=== PATIENT | male | born 1955 | race Caucasian/White ===

== ENCOUNTER → 2021-11-22 | Outpatient (CLI) | payer MEDICARE, MEDICAID ==
--- NOTE | 2021-11-22 14:48 | Diagnostic Imaging Report ---
EXAMINATION: CT Lung Screening. INDICATION: Screening for lung cancer, [id number] history of smoking, current smoker. TECHNIQUE: Noncontrast, low-dose CT imaging performed according to the lung cancer screening protocol. Auto Exposure Controls were utilize during the CT exam to meet ALARA standards for radiation dose reduction. COMPARISON: None available. FINDINGS: No significant adenopathy within the chest. No aneurysmal dilatation of the thoracic aorta. Scattered vascular calcifications, including extensive calcifications versus stents within the coronary arteries. The heart is within normal limits in size. No significant pericardial effusion. No significant pleural effusion. The trachea is patent. No pneumothorax. Small pleural-based 0.4 cm solid left lower lobe pulmonary nodule, series 2, image 64. 0.6 x 0.4 cm pleural-based right lower lobe pulmonary nodule adjacent to the fissure, series 2, image 110. No additional suspicious pulmonary nodule or mass. Tiny fat-containing diaphragmatic hernia noted posteriorly on the right. 2.6 cm hypodensity within the superior pole of the left kidney is partially visualized. Scattered osseous degenerative changes. No acute osseous abnormality. IMPRESSION: Sub-0.6 cm bilateral pulmonary nodules as described above. Given size and appearance, these are felt to be benign in appearance or behavior. Significant vascular calcifications versus stents within the coronary arteries. Left renal hypodensity, only partially visualized. Statistically this likely relates to a cyst, though this could be confirmed with a renal ultrasound as it is technically indeterminate based upon this examination. LUNG-RADS CATEGORY: 2S: Benign appearance or behavior. MODIFIER: S: Significant vascular calcifications versus advanced coronary artery calcifications. Indeterminate left renal hypodensity which could be further evaluated with a renal ultrasound. FOLLOW-UP: Continued annual low-dose CT of the chest in 12 months. Renal ultrasound could be performed to further evaluate the partially visualized hypodensity within the left kidney if this has not previously been evaluated. Dictated by: Dictated on workstation # [id number]
== END ==
LOC: RAD 12:15
PROVIDERS: ATTEND Internal Medicine
DX: Z12.2 Encounter for screening for malignant neoplasm of respiratory organs (principal); R91.8 Other nonspecific abnormal finding of lung field; F17.210 Nicotine dependence, cigarettes, uncomplicated; Z95.5 Presence of coronary angioplasty implant and graft
CPT/HCPCS: 71271

== ENCOUNTER 2021-12-01 11:59 | Emergency (ER) | payer MEDICARE, MEDICAID ==
[~2021-12-01] VITALS: Ht 167 cm; Wt 75.0 kg
[2021-12-01] MEDS ORDERED: DEXTROSE 50% 50 ML (IMS) SYR ONE (12:13)
--- NOTE | 2021-12-01 12:19 | ED General ---
General Stated Complaint: LOW BLOOD SUGAR Source of Information: Patient, EMS Exam Limitations: No Limitations History of Present Illness Date Seen by Provider: Dec 01, 2021 Time Seen by Provider: 12:00 Initial Comments Bill is a 66-year-old male who presents to the emergency room by ambulance chief complaint low blood sugar. Known dialysis patient. EMS reports they found him poorly responsive blood sugar down in the 30s. Patient states that he got up about 530 or 6:00 this morning, had breakfast but shortly afterwards became very confused, could not really see clearly could not think clearly "I thought I was ". He is not clear on how the ambulance got to him. EMS reports he was profusely diaphoretic. He denies any recent illnesses such as fevers, chills, productive cough. He is COVID vaccinated x3. He denies any diarrhea. He still occasionally makes urine no difficulties with that. No rashes, joint pain or swelling. He does not recall his daily medications but states that he takes "a lot". He does not have a local doctor. He was recently released from [facility] in [facility] and has been residing in [place] for about a month and assisted living here. He does not know who his nephrol ogist is. He dialyzes Sunday and Sunday. On arrival blood sugar remains 33 by Accu-Chek. He is awake alert, oriented, talking no complaints. Drinking orange juice. Tetanus UTD All other review of systems reviewed and negative except as stated. Timing/Duration: 1-3 Hours Associated Systoms: Weakness Allergies and Home Medications Allergies Coded Allergies: No Known Drug Allergies (Unverified , 12/01/21) Patient Home Medication List Home Medication List Reviewed: Yes Hydrocodone/Acetaminophen (Hydrocodone-Acetamin 5-325 mg) 1 Each Tablet, 1 TAB PO Q6H PRN for PAIN-MODERATE (5-7) Prescribed by: OLAF BOTELLO on 12/01/21 3364 Review of Systems Review of Systems Constitutional: see HPI EENTM: no symptoms reported Respiratory: no symptoms reported Cardiovascular: no symptoms reported Gastrointestinal: no symptoms reported Genitourinary: no symptoms reported Musculoskeletal: no symptoms reported Skin: other (abrasions) Psychiatric/Neurological: No Symptoms Reported All Other Systems Reviewed Negative Unless Noted: Yes Physical Exam Vital Signs Vital Signs - First Documented 12/01/21 11:59 Temp 36.3 Pulse 77 Resp 16 B/P (MAP) 131/71 (91) Pulse Ox 100 O2 Delivery Room Air Capillary Refill : Height, Weight, BMI Height: '" Weight: lbs. oz. kg; BMI Method: General Appearance: No Apparent Distress, WD/WN Eyes: Bilateral Eye Normal Inspection, Bilateral Eye PERRL, Bilateral Eye EOMI HEENT: PERRL/EOMI Neck: Normal Inspection Respiratory: Lungs Clear, Normal Breath Sounds, No Accessory Muscle Use, No Respiratory Distress, Other (tenderness to chest wall bilaterally; no crepitance;) Cardiovascular: Regular Rate, Rhythm (distant hear sounds (rate 70's)) Gastrointestinal: Non Tender, Soft Back: No Vertebral Tenderness Extremity: Normal Inspection, Normal Range of Motion, Non Tender, No Pedal Edema Neurologic/Psychiatric: Alert, Oriented x3, No Motor/Sensory Deficits, Normal Mood/Affect Skin: Normal Color, Warm/Dry, Other (abrasions right elbow and right forearm; also left forearm) Progress/Results/Core Measures Suspected Sepsis SIRS Temperature: Pulse: Respiratory Rate: Laboratory Tests 12/01/21 13:10: White Blood Count 18.2H Blood Pressure / Mean: Laboratory Tests 12/01/21 12:11: Creatinine 9.29H, Total Bilirubin 0.5 12/01/21 13:10: Platelet Count 237 Results/Orders Lab Results Laboratory Tests Test 12/01/21 12:04 12/01/21 12:11 12/01/21 12:28 12/01/21 13:10 Range/Units Glucometer 34 *L 92 70-110 MG/DL Sodium Level 142 135-145 MMOL/L Potassium Level 4.2 3.6-5.0 MMOL/L Chloride Level 98 98-107 MMOL/L Carbon Dioxide Level 22 21-32 MMOL/L Anion Gap 22 H 5-14 MMOL/L Blood Urea Nitrogen 50 H 7-18 MG/DL Creatinine 9.29 H 0.60-1.30 MG/DL Estimat Glomerular Filtration Rate 6 BUN/Creatinine Ratio 5 Glucose Level 66 L 70-105 MG/DL Calcium Level 10.1 8.5-10.1 MG/DL Corrected Calcium 10.1 8.5-10.1 MG/DL Total Bilirubin 0.5 0.1-1.0 MG/DL Aspartate Amino Transf (AST/SGOT) 24 5-34 U/L Alanine Aminotransferase (ALT/SGPT) 11 0-55 U/L Alkaline Phosphatase 214 H 40-136 U/L Total Protein 6.8 6.4-8.2 GM/DL Albumin 4.0 3.2-4.5 GM/DL White Blood Count 18.2 H 4.3-11.0 10^3/uL Red Blood Count 5.04 4.30-5.52 10^6/uL Hemoglobin 17.0 13.3-17.7 g/dL Hematocrit 53 40-54 % Mean Corpuscular Volume 105 H 80-99 fL Mean Corpuscular Hemoglobin 34 25-34 pg Mean Corpuscular Hemoglobin Concent 32 32-36 g/dL Red Cell Distribution Width 14.2 10.0-14.5 % Platelet Count 237 130-400 10^3/uL Mean Platelet Volume 9.9 9.0-12.2 fL Immature Granulocyte % (Auto) 1 % Neutrophils (%) (Auto) 88 H 42-75 % Lymphocytes (%) (Auto) 4 L 12-44 % Monocytes (%) (Auto) 8 0-12 % Eosinophils (%) (Auto) 0 0-10 % Basophils (%) (Auto) 0 0-10 % Neutrophils # (Auto) 16.0 H 1.8-7.8 10^3/uL Lymphocytes # (Auto) 0.6 L 1.0-4.0 10^3/uL Monocytes # (Auto) 1.4 H 0.0-1.0 10^3/uL Eosinophils # (Auto) 0.0 0.0-0.3 10^3/uL Basophils # (Auto) 0.1 0.0-0.1 10^3/uL Immature Granulocyte # (Auto) 0.1 0.0-0.1 10^3/uL Neutrophils % (Manual) 83 % Lymphocytes % (Manual) 5 % Monocytes % (Manual) 8 % Band Neutrophils 1 % Atypical Lymphocytes 2 % Reactive Lymphocytes 1 % Toxic Granulation 1+ Polychromasia SLIGHT Anisocytosis SLIGHT Microcytosis SLIGHT Macrocytosis SLIGHT Test 12/01/21 13:23 Range/Units Glucometer 243 H 70-110 MG/DL My Orders Orders - OLAF BOTELLO MD Ed Iv/Invasive Line Start (12/01/21 12:12) Cbc With Automated Diff (12/01/21 12:12) Comprehensive Metabolic Panel (12/01/21 12:12) Accucheck Stat ONCE (12/01/21 12:13) D50w (Emergency) Syringe (Dextrose 50% 5 (12/01/21 12:13) General/Regular (12/01/21 Lunch) D50w (Emergency) Syringe (Dextrose 50% 5 (12/01/21 13:00) Manual Differential (12/01/21 13:10) Accucheck Stat ONCE (12/01/21 13:35) Chest 1 View, Ap/Pa Only (12/01/21 14:05) Hydrocodone/Apap 5/325 Tablet (Lortab 5 (12/01/21 14:15) Accucheck Stat ONCE (12/01/21 14:34) Medications Given in ED Current Medications Medications Dose Ordered Sig/Elsy Route Start Time Stop Time Status Last Admin Dose Admin Acetaminophen/ Hydrocodone Bitart 1 ea ONCE ONCE PO 12/01/21 14:15 12/01/21 14:16 DC 12/01/21 14:31 1 EA Dextrose 50 ml STK-MED ONCE .ROUTE 12/01/21 12:13 12/01/21 12:16 DC 12/01/21 12:20 50 ML Vital Signs/I&O 12/01/21 11:59 Temp 36.3 Pulse 77 Resp 16 B/P (MAP) 131/71 (91) Pulse Ox 100 O2 Delivery Room Air Capillary Refill : Progress Note : Time: 14:37 Progress Note remains awake and alert and oriented. Blood sugar steadily improving. Complains of chest wall pain with movement and deep breath (likely from fall with low blood sugar). VSS. Has a leukocytosis - likely also related to the low blood sugar and fall. No complaints of illness. Has eaten. Will discharge to home with return precautions. Follow up with PCP. Diagnostic Imaging Diagonstic Imaging: Xray Plain Films/CT/US/NM/MRI: chest Comments [facility]. [place], [place] NAME: BILL SEE MED REC#: [id number] PT STATUS: REG ER : 1955 PHYSICIAN: OLAF BOTELLO MD ADMIT DATE: 12/01/21/ER Draft Date of Exam:12/01/21 CHEST 1 VIEW, AP/PA ONLY INDICATION: Anterior chest wall pain. TIME OF EXAM: 2:05 PM No prior studies are available for comparison. FINDINGS: The heart size is normal. The pulmonary vascularity is unremarkable. The lungs are clear. No infiltrate, effusion or pneumothorax is detected. IMPRESSION: No acute cardiopulmonary process is detected. Dictated on workstation # [id number] Dict: 12/01/21 1424 Trans: 12/01/21 1426 CVB [id number] Interpreted by: DANIEL DOMINGUEZ MD Electronically signed by: Critical Care Note Critical Care Start Time: 12:00 Stop Time: 14:30 Total Time (minutes) 1 hour critical care time in the evaluation and management of this patient with hypoglycemia. Linda includes initial eval and supplementation of glucose. continuous monitoring with multiple blood sugar checks. eval of labs and i maging. Discussion with patient. review of medical history. 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 Decision time for Depature: 14:39 Referrals: [facility]/HELADIO JOSE MD Patient Instructions: Low Blood Sugar in People With Diabetes Add. Discharge Instructions: Continue to follow your diabetes diet. Check your blood sugar 4 times a day. Follow up closely with your primary healthcare provider. Return to the ER for any new, emergent or concerning symptoms. I have given you 2 days of pain medications for your chest wall pain. Take this only as needed every 6 hours - this medication can make you sleepy and lead to constipation. Scripts Hydrocodone/Acetaminophen (Hydrocodone-Acetamin 5-325 mg) 1 Each Tablet 1 TAB PO Q6H PRN for PAIN-MODERATE (5-7), #8 TAB Prov: OLAF BOTELLO MD 12/01/21 OLAF BOTELLO MD Dec 01, 2021 12:19
[2021-12-01 12:27] LABS: POTASSIUM 4.2 MMOL/L (3.6-5.0)
[2021-12-01 12:28] LABS: CALCIUM 10.1 MG/DL (8.5-10.1)
[2021-12-01 12:30] LABS: TOTAL PROTEIN 6.8 GM/DL (6.4-8.2)
[2021-12-01 12:31] LABS: BILIRUBIN,TOTAL 0.5 MG/DL (0.1-1.0)
[2021-12-01 12:33] LABS: CREATININE SERUM 9.29 MG/DL (0.60-1.30)
[2021-12-01] MEDS ORDERED: DEXTROSE 50% 50 ML (IMS) SYR IV ONE (13:00)
[2021-12-01 13:17] LABS: BASOPHILS # (AUTO) 0.1 10^3/uL (0.0-0.1); BASOPHILS % (AUTO) 0 % (0-10); EOSINOPHILS % (AUTO) 0 % (0-10); HEMATOCRIT 53 % (40-54); LYMPHOCYTES # (AUTO) 0.6 10^3/uL (1.0-4.0); LYMPHOCYTES % (AUTO) 4 % (12-44); MEAN CORPUSCULAR HEMOGLOBIN 34 pg (25-34); MEAN CORPUSCULAR HGB CONC 32 g/dL (32-36); MEAN CORPUSCULAR VOLUME 105 fL (80-99); MEAN PLATELET VOLUME 9.9 fL (9.0-12.2); MONOCYTES # (AUTO) 1.4 10^3/uL (0.0-1.0); MONOCYTES % (AUTO) 8 % (0-12); NEUTROPHILS % (AUTO) 88 % (42-75); PLATELET COUNT 237 10^3/uL (130-400); WHITE BLOOD COUNT 18.2 10^3/uL (4.3-11.0)
[2021-12-01 13:58] LABS: ANISOCYTOSIS SLIGHT; ATYPICAL LYMPHOCYTES 2 %; BAND NEUTROPHILS 1 %; LYMPHOCYTES % (MANUAL) 5 %; MICROCYTOSIS SLIGHT; MONOCYTES % (MANUAL) 8 %; NEUTROPHILS % (MANUAL) 83 %; POLYCHROMASIA SLIGHT; REACTIVE LYMPHOCYTES 1 %; TOXIC GRANULATION/VACUOLAZATIO 1+
[2021-12-01] MEDS ORDERED: HYDROcodone/APAP 5 MG/325 MG (LORTAB) TAB PO ONE (14:15)
--- NOTE | 2021-12-01 14:26 | Diagnostic Imaging Report ---
INDICATION: Anterior chest wall pain. TIME OF EXAM: 2:05 PM No prior studies are available for comparison. FINDINGS: The heart size is normal. The pulmonary vascularity is unremarkable. The lungs are clear. No infiltrate, effusion or pneumothorax is detected. IMPRESSION: No acute cardiopulmonary process is detected. Dictated by: Dictated on workstation # [id number]
[2021-12-01] MEDS ORDERED: ACHD5005 PO (14:43)
[2021-12-01 14:56] VITALS: BP 121/63
== END 2021-12-01 14:56 | disposition home or self-care (01) ==
LOC: EDUNIT# 11:59 → ER 12:00
DX: S50.311A Abrasion of right elbow, initial encounter (principal); S50.811A Abrasion of right forearm, initial encounter; S50.812A Abrasion of left forearm, initial encounter; E11.649 Type 2 diabetes mellitus with hypoglycemia without coma; E11.22 Type 2 diabetes mellitus with diabetic chronic kidney disease; N18.6 End stage renal disease; R07.89 Other chest pain; D72.829 Elevated white blood cell count, unspecified; Z79.4 Long term (current) use of insulin; Z99.2 Dependence on renal dialysis; X58.XXXA Exposure to other specified factors, initial encounter
CPT/HCPCS: 36415; 71045; 80053; 82947; 85007; 85027

== ENCOUNTER → 2021-12-06 | Outpatient (CLI) | payer MEDICARE, MEDICAID ==
[~2021-12-06] MED LIST: ACHD5005 PO
--- NOTE | 2021-12-06 13:55 | Diagnostic Imaging Report ---
CLINICAL INDICATION: Patient thinks he possibly fell on table at home. Patient has pain across lower ribs on both sides. Exams: 1: Chest x-ray PA and lateral views. 2: X-ray of the right ribs, 3 views. COMPARISON: Chest x-ray dated 12/01/2021. CT scan of the chest without contrast dated 11/22/2021. FINDINGS: There are no right rib fractures seen. There is no pneumothorax. There is interval development of amorphous airspace opacities in left lung base which may represent atelectasis versus infiltrate. Lateral view shows blunting of the costophrenic angle regions posteriorly which may be related to minimal pleural effusions versus lung atelectasis or infiltrate. Pulmonary vasculature is within normal limits. There is upper limits of normal heart size. Stable chronic anterior wedge deformity of the T11 vertebra seen on comparison chest CT scan. Impression: 1: There are no rib fractures and no definite acute bone fracture seen on this exam. There is a chronic anterior wedge deformity of the T11 vertebra. 2: Interval development of a small area of atelectasis versus infiltrate left lung base. 3: There is blunting of the costophrenic angle regions posteriorly which may be related to minimal pleural effusions or minimal atelectasis or infiltrate. Dictated by: Dictated on workstation # [id number]
== END ==
LOC: RAD 12:58
PROVIDERS: ATTEND Nurse Practitioner Family
DX: M43.8X4 Other specified deforming dorsopathies, thoracic region (principal)
CPT/HCPCS: 71046; 71100

== ENCOUNTER 2021-12-29 07:10 | Day surgery (SDC) | payer MEDICARE, MEDICAID ==
[~2021-12-29] VITALS: Ht 160 cm; Wt 76.4 kg
[~2021-12-29 07:10] MED LIST changes: +ASPI-999 PO; +BUPR100T15 PO; +BUPR200T34 PO; +CARV3.122 PO; +CLOP75TA28 PO; +DOCU100C37 PO; +FOLI0.8T2 PO; +INSU100V16 SQ; +LEVO25TA5 PO; +MULT-1056 PO; +PANT40TA52 PO; +SERT-413 PO; +SEVE800T13 PO; +SODI10PO PO
[2021-12-29] MEDS ORDERED: HURRICAINE EXT TUBE (BENZOCAINE) XX PRN (07:15)
[2021-12-29] MEDS ORDERED: NS IV 500 ML 500 ML IV PRN (07:15)
[2021-12-29] MEDS ORDERED: PROPOFOL INJECTION 50 ML IV ONE (07:31)
[2021-12-29 07:36] VITALS: BP 104/55
--- NOTE | 2021-12-29 07:49 | Pre-Op Note & Conscious Sedat ---
Pre-Operative Progress Note H&P Reviewed The H&P was reviewed, patient examined and no changes noted. Date H&P Reviewed: Dec 29, 2021 Time H&P Reviewed: 07:49 Conscious Sedation Pre-Proced ASA Score 3 For ASA 3 and 4: Consider anesthesia and medical clearance. Also, for patients with a history of failed moderate sedation consider anesthesia. Airway Lungs Heart ASA score ASA 1: a normal healthy patient ASA 2: a patient with a mild systemic disease (mid diabetes, controlled hypertension, obesity ASA 3: a patient with a severe systemic disease that limits activity (angina, COPD, prior Myocardial infarction) ASA 4: a patient with an incapacitating disease that is a constant threat to life (CHF, renal failure) ASA 5: a moribund patient not expected to survive 24 hrs. (ruptured aneurysm) ASA 6: a declared brain- patient whose organs are being harvested. For emergent operations, add the letter E after the classification Mallampati Classification Grade 2 Sedation Plan Analgesia, Amnesia, Plan communicated to team members, Discussed options with patient/fam, Discussed risks with patient/fam The patient is an appropriate candidate to undergo the planned procedure, sedation, and anesthesia. The patient immediately re-assessed prior to indication. JS GARCIA MD Dec 29, 2021 07:49
[2021-12-29 08:20] VITALS: BP 93/56
[2021-12-29 08:25] VITALS: BP 109/63
[2021-12-29 08:30] VITALS: BP 122/71
[2021-12-29 08:35] VITALS: BP 115/57
[2021-12-29 09:05] VITALS: BP 112/56
--- NOTE | 2021-12-29 09:48 | Anesthesia-General Post-Op ---
MAC Patient Condition Mental Status/LOC: Same as Preop Cardiovascular: Satisfactory Nausea/Vomiting: Absent Respiratory: Satisfactory Pain: Controlled Complications: Absent Post Op Complications Complications None Follow Up Care/Instructions Patient Instructions None needed. Anesthesiology Discharge Order Discharge Order Patient is doing well, no complaints, stable vital signs, no apparent adverse anesthesia problems. No complications reported per nursing. PRISCILLA BARNES CRNA Dec 29, 2021 09:48
--- NOTE | 2021-12-29 11:42 | OPERATIVE REPORT ---
DATE OF SERVICE: COLONOSCOPY SUMMARY The patient is a 66-year-old white male referred for screening colonoscopy by Dr. Luis Daniel Molina. DESCRIPTION OF PROCEDURE: The patient was placed in the left lateral decubitus position. Prior to undergoing colonoscopy, digital rectal evaluation was performed. Anal sphincter tone was normal and the perianal reflexes intact. Prostate is mildly enlarged and anodular on digital inspection. No other abnormalities were noted on digital inspection of anal canal or distal rectal vault. The colonoscope was then inserted into the rectum and under direct visualization advanced to the cecum. The cecum was identified by identification of the ileocecal valve with cecal strap and appendiceal orifice. Photographic documentation was obtained. Quality of prep was good. FINDINGS: There was no evidence for external hemorrhoids. There were several grade I internal hemorrhoid complexes noted. One 3 mm hyperplastic-appearing polyp was noted in the distal rectum, which considering the patient's age, medical comorbidities, and Plavix was left as risk of removal were outweighed by benefit. The remainder of the rectum was unremarkable. The sigmoid colon, descending colon, and splenic flexure were unremarkable. Present in the proximal transverse colon was an 8 mm sessile adenomatous appearing polyp. It was photographed and biopsied and ablated with hot forceps with no blood loss. The hepatic flexure, ascending colon, and cecum were unremarkable. There was no evidence for diverticular disease. ASSESSMENT: Sessile adenomatous appearing polyp was removed from the proximal transverse colon via hot forceps with no subsequent blood loss. The patient was advised to resume Plavix this coming Sunday. As long as there is no evidence for dysplasia or microscopic malignancy considering patient's age coupled with significant medical comorbidities including diabetes and dialysis for end-stage renal disease. I would not recommend future screening colonoscopy. I thank you for the referral of this pleasant gentleman. CC: Dr. Luis Daniel Molina -- requested, unable to deliver. Job ID: [id number] DocumentID: [id number] Dictated Date: 12/29/2021 08:39:44 Family Day Care Worker Date: 12/29/2021 11:41:10 Dictated By: JS GARCIA MD [facility]
--- NOTE | 2021-12-30 10:38 | HISTORY AND PHYSICAL ---
DATE OF SERVICE: COLONOSCOPY HISTORY AND PHYSICAL HISTORY OF PRESENT ILLNESS: The patient is a 66-year-old white male referred by Dr. Molina for his first screening colonoscopy. He recently moved to [place] and is currently a resident of [facility]. He is not aware of any family history for colon cancer. Denies abdominal pain, bright red blood per rectum, melena or change in bowel habit. He is deemed to be of average risk, although he is a poor historian. PAST MEDICAL HISTORY: Significant for longstanding hypertension and diabetes with secondary stage V renal disease for which he is on hemodialysis on Sunday, Sunday and Fridays. He has history of coronary artery disease. Reports had at least one coronary stent placed in 2009 and none since that time. He has been on aspirin and Plavix since. He knows little about his health history. I am assuming that he is on erythropoietin stimulating medication for anemia. He stated that he did not know and could not tell me anything about blood counts or the degree of his anemia nor did he know what his HbA1cs were or give me much information about blood sugar levels. PAST SURGICAL HISTORY: He reports no significant past surgeries other than his AV shunt for dialysis. FAMILY HISTORY: As noted in the HPI. SOCIAL HISTORY: He is disabled due to dialysis and end-stage renal disease, living in an assisted living facility. Reports no significant alcohol intake. Past smoking history, vague on amount. REVIEW OF SYSTEMS: CONSTITUTIONAL: Denies night sweats, chills, fever, change in weight. PULMONARY: Denies cough, wheezing or shortness of breath. CARDIOVASCULAR: Denies chest pain, orthopnea, PND or pedal edema. Denies syncope or presyncope. GASTROINTESTINAL: As noted in the HPI. PHYSICAL EXAMINATION: GENERAL: Reveals a white male who appeared to be in no acute distress. VITAL SIGNS: Heart rate 78 and regular. Blood pressure 120/64. HEENT: Other than somewhat sallow complexion, is unremarkable. There was no evidence for pallor. CHEST: Clear to auscultation. CARDIOVASCULAR: Reveals a regular rate and rhythm without significant murmur, S3 or S4. ABDOMEN: Soft, supple without mass, organomegaly or tenderness. Bowel sounds positive. EXTREMITIES: Reveal no cyanosis, clubbing or edema. ASSESSMENT AND PLAN: The patient is being set up for apparently his first screening colonoscopy. Due to end-stage renal disease, will use MiraLax based prep for which instructions were given and questions were answered. Electronic medical record was reviewed. We will have the patient hold aspirin and Plavix one week prior to the procedure and the day before the procedure on his liquid diet, we will have him cut back on his regular insulin from usual 7 units to 5 before meals. Discussed medication for hypoglycemia. I thank you for the referral of this pleasant gentleman. Sincerely, Job ID: [id number] DocumentID: [id number] Dictated Date: 11/29/2021 10:03:47 Table Tender Sludge Date: 11/29/2021 11:17:45 Dictated By: JS GARCIA MD <Dictated by JS GARCIA MD> <Electronically signed by JS GARCIA MD> 12/11/21 1535 MTDD
== END 2021-12-29 09:20 | disposition home or self-care (01) ==
LOC: ENDO 07:10
PROVIDERS: ATTEND Internal Medicine
DX: Z12.11 Encounter for screening for malignant neoplasm of colon (principal); K63.5 Polyp of colon; K62.1 Rectal polyp; N40.0 Benign prostatic hyperplasia without lower urinary tract symptoms; K64.8 Other hemorrhoids; Z66 Do not resuscitate; E11.22 Type 2 diabetes mellitus with diabetic chronic kidney disease; I12.0 Hypertensive chronic kidney disease with stage 5 chronic kidney disease or end stage renal disease; N18.6 End stage renal disease; Z99.2 Dependence on renal dialysis; Z87.891 Personal history of nicotine dependence; Z79.4 Long term (current) use of insulin; Z79.82 Long term (current) use of aspirin; Z95.5 Presence of coronary angioplasty implant and graft; Z79.02 Long term (current) use of antithrombotics/antiplatelets

== ENCOUNTER → 2022-02-21 | Outpatient (CLI) | payer MEDICARE, MEDICAID ==
--- NOTE | 2022-02-21 13:08 | Diagnostic Imaging Report ---
PROCEDURE: US Renal Bilateral. TECHNIQUE: Multiple Real-time grayscale images were obtained over the kidneys in various projections bilaterally. INDICATION: Abnormal CT study demonstrating a lesion in the left kidney. COMPARISON: CT chest screening study from 11/22/2021. FINDINGS: The right kidney measures 8.6 x 3.1 x 3.9 cm and the left kidney measures 7.5 x 3.8 x 3.5 cm. The right kidney demonstrates a simple appearing cyst in the lower pole measuring 3.4 x 2.9 x 3.6 cm. A cyst in the upper pole of the left kidney measures 3.2 x 2.3 x 2.2 cm. This likely accounts for the CT abnormality. No calculus or hydronephrosis is seen. There is some mild renal cortical thinning bilaterally. IMPRESSION: Bilateral renal cysts. No other significant abnormality is seen. Dictated by: Dictated on workstation # [id number]
== END ==
LOC: RAD 11:58
DX: N28.1 Cyst of kidney, acquired (principal)
CPT/HCPCS: 76770

== ENCOUNTER → 2022-04-21 | Outpatient (CLI) | payer MEDICARE, MEDICAID ==
[2022-04-21 12:11] LABS: ABSOLUTE RETIC # 128 10e9/uL (24-90); BASOPHILS # (AUTO) 0.1 10^3/uL (0.0-0.1); BASOPHILS % (AUTO) 1 % (0-10); EOSINOPHILS # (AUTO) 0.1 10^3/uL (0.0-0.3); EOSINOPHILS % (AUTO) 1 % (0-10); HEMATOCRIT 59 % (40-54); HEMOGLOBIN 19.4 g/dL (13.3-17.7); LYMPHOCYTES # (AUTO) 1.4 10^3/uL (1.0-4.0); LYMPHOCYTES % (AUTO) 14 % (12-44); MEAN CORPUSCULAR HEMOGLOBIN 34 pg (25-34); MEAN CORPUSCULAR HGB CONC 33 g/dL (32-36); MEAN CORPUSCULAR VOLUME 103 fL (80-99); MEAN PLATELET VOLUME 9.9 fL (9.0-12.2); MONOCYTES # (AUTO) 1.5 10^3/uL (0.0-1.0); MONOCYTES % (AUTO) 15 % (0-12); NEUTROPHILS # (AUTO) 7.1 10^3/uL (1.8-7.8); NEUTROPHILS % (AUTO) 70 % (42-75); PLATELET COUNT 217 10^3/uL (130-400); RETICULOCYTE % 2.24 % (0.50-2.40); WHITE BLOOD COUNT 10.2 10^3/uL (4.3-11.0)
[2022-04-21 12:43] LABS: BAND NEUTROPHILS 0 %; BASOPHILS % (MANUAL) 0 %; EOSINOPHILS % (MANUAL) 0 %; LYMPHOCYTES % (MANUAL) 14 %; MONOCYTES % (MANUAL) 10 %; NEUTROPHILS % (MANUAL) 76 %; RBC MORPH NORMAL
== END ==
LOC: LABNPT 12:02
PROVIDERS: ATTEND Internal Medicine
DX: D75.1 Secondary polycythemia (principal)
CPT/HCPCS: 85007; 85027; 85045; 85055

== ENCOUNTER 2022-05-12 11:46 | Emergency (ER) | payer MEDICARE, MEDICAID ==
[~2022-05-12] VITALS: Ht 160 cm; Wt 81.6 kg
[2022-05-12 12:15] LABS: BASOPHILS # (AUTO) 0.1 10^3/uL (0.0-0.1); BASOPHILS % (AUTO) 1 % (0-10); EOSINOPHILS # (AUTO) 0.1 10^3/uL (0.0-0.3); EOSINOPHILS % (AUTO) 1 % (0-10); HEMATOCRIT 57 % (40-54); LYMPHOCYTES # (AUTO) 0.9 10^3/uL (1.0-4.0); LYMPHOCYTES % (AUTO) 11 % (12-44); MEAN CORPUSCULAR HEMOGLOBIN 34 pg (25-34); MEAN CORPUSCULAR HGB CONC 33 g/dL (32-36); MEAN CORPUSCULAR VOLUME 102 fL (80-99); MEAN PLATELET VOLUME 9.9 fL (9.0-12.2); MONOCYTES # (AUTO) 1.3 10^3/uL (0.0-1.0); MONOCYTES % (AUTO) 15 % (0-12); NEUTROPHILS # (AUTO) 5.9 10^3/uL (1.8-7.8); NEUTROPHILS % (AUTO) 71 % (42-75); PLATELET COUNT 231 10^3/uL (130-400); WHITE BLOOD COUNT 8.2 10^3/uL (4.3-11.0)
[2022-05-12 12:47] LABS: INR 0.9 (0.8-1.4)
--- NOTE | 2022-05-12 12:47 | ED General ---
General Chief Complaint: General Problems/Pain Stated Complaint: DIALYSIS FISTULA BLEEDING Nursing Triage Note: PT TO ROOM 01 VIA [facility] FROM [facility] WITH C/O DIALYSIS SHUNT IN RIGHT UPPER ARM BLEEDING. PT STATES HE HAD DIALYSIS TODAY. DRESSING IN PLACE BY ALF STAFF PRIOR TO EMS ARRIVAL AT FACILITY. PT DENIES ANY OTHER C/O. Source of Information: Patient (VERY POOR HISTORIAN) History of Present Illness Date Seen by Provider: May 12, 2022 Time Seen by Provider: 11:49 Initial Comments PT ARRIVES VIA EMS FROM [facility] PT HAD DIALYSIS THIS MORNING, FINISHING AROUND 1030 THIS AM JUST PRIOR TO ARRIVAL, PT REPORTEDLY HAD SUDDEN SPONTANEOUS BLEEDING FROM HIS RIGHT UPPER ARM FISTULA SITE. [facility] STAFF PLACED A PRESSURE DRESSING ON THE AREA PRIOR TO ARRIVAL, AND THAT DRESSING IS CLEAN AND DRY PT VOICES NO COMPLAINTS, DENIES PAIN, DENIES PARESTHESIAS OR MOTOR DEFICITS. DENIES DIZZINESS OR SYNCOPE PT IS ON ASPIRIN AND PLAVIX PT DOES NOT KNOW WHAT MEDICATIONS HE HAS TAKEN TODAY PT IS NOT SURE WHERE OR WHEN HE HAD THE FISTULA PLACED--THINKS IT WAS POSSIBLY 4 YEARS AGO, BUT DOES NOT REMEMBER IF IT WAS [place] OR [place] STATES HE MOVED HERE IN SEPTEMBER OF THIS YEAR--HAD BEEN LIVING IN BOTH [place] AND [place] PRIOR TO MOVING HERE--STATES HIS SON MOVED HIM HERE. PT DOES NOT KNOW WHO HIS PASTOR IS, BUT HE GOES TO [facility] LATER, HE STATES THAT HE NOTICED IT WAS BLEEDING AND HE HAD BLOOD ON HIS SHIRT, WHILE RIDING IN THE CAR BACK FROM DIALYSIS TO [facility]. HE STATES HE WENT TO THE BATHROOM WHEN HE GOT TO [place], AND THEN IT "STARTED GUSHING" PCP: DR. FALL Allergies and Home Medications Allergies Coded Allergies: No Known Drug Allergies (Unverified , 12/01/21) Patient Home Medication List Home Medication List Reviewed: Yes Aspirin (Aspirin) 81 Mg Tab.chew, 81 MG PO DAILY, (Reported) Entered as Reported by: MASOOD PARRY on 12/23/21 1645 Bupropion HCl (Bupropion HCl) 100 Mg Tablet, 100 MG PO DAILY@1700, (Reported) Entered as Reported by: MASOOD PARRY on 12/23/21 1645 Bupropion HCl (Bupropion HCl ER) 200 Mg Tablet.er, 200 MG PO DAILY, (Reported) Entered as Reported by: MASOOD PARRY on 12/23/211644 Carvedilol (Carvedilol) 3.125 Mg Tablet, 3.125 MG PO BID, (Reported) Entered as Reported by: MASOOD PARRY on 12/23/211644 Clopidogrel Bisulfate (Clopidogrel) 75 Mg Tablet, 75 MG PO DAILY, (Reported) Entered as Reported by: MASOOD PARRY on 12/23/211644 Docusate Sodium (Docusate Sodium) 100 Mg Capsule, 100 MG PO DAILY, (Reported) Entered as Reported by: MASOOD PARRY on 12/23/211644 Folic Acid/Vitamin B Comp W-C (Nephro-Dread Tablet) 0.8 Mg Tablet, 0.8 MG PO DAILY, (Reported) Entered as Reported by: MASOOD PARRY on 12/23/211644 Hydrocodone/Acetaminophen (Hydrocodone-Acetamin 5-325 mg) 1 Each Tablet, 1 TAB PO Q4H PRN for PAIN-MODERATE (5-7), (Reported) Entered as Reported by: MASOOD PARRY on 12/23/211644 Insulin Aspart (Novolog) 100 Unit/1 Ml Susp, 8-15 UNITS SQ BIDAC, (Reported) Entered as Reported by: MASOOD PARRY on 12/23/211644 Levothyroxine Sodium (Levothyroxine Sodium) 25 Mcg Tablet, 25 MCG PO DAILY, (Reported) Entered as Reported by: MASOOD PARRY on 12/23/211644 Multivit-Min/FA/Lycopen/Lutein (Men 50 Plus Multivitamin Tab) 1 Each Tablet, 1 EACH PO DAILY, (Reported) Entered as Reported by: MASOOD PARRY on 12/23/211644 Pantoprazole Sodium (Pantoprazole Sodium) 40 Mg Tablet.dr, 40 MG PO DAILY, (Reported) Entered as Reported by: MASOOD PARRY on 12/23/211644 Sertraline HCl (Sertraline HCl) 50 Mg Tablet, 50 MG PO DAILY, (Reported) Entered as Reported by: MASOOD PARRY on 12/23/211644 Sevelamer Carbonate (Sevelamer Carbonate) 800 Mg Tablet, 3 TAB PO TID, (Reported) Entered as Reported by: MASOOD PARRY on 12/23/211644 Sodium Zirconium Cyclosilicate (Lokelma) 10 Gm Powd.pack, 10 GM PO DAILY, (Reported) Entered as Reported by: MASOOD PARRY on 12/23/211644 Review of Systems Review of Systems Constitutional: no symptoms reported Respiratory: no symptoms reported Cardiovascular: no symptoms reported Musculoskeletal: see HPI Skin: see HPI Psychiatric/Neurological: No Symptoms Reported Hematologic/Lymphatic: See HPI Past Hhtdoyh-Lunzsj-Vdfurk Hx Patient Social History Tobacco Use?: Yes Tobacco type used: Cigarettes Smoking Status: Heavy Tobacco Smoker Smokeless Tobacco Frequency: Never a User Use of E-Cig and/or Vaping dev: No Use of E-Cig and/or Vaping Pramod: Never a User Substance use?: No Alcohol Use?: No Pt feels they are or have been: No Immunizations Up To Date First/Initial COVID19 Vaccinat: UNKNOWN DATE Second COVID19 Vaccination Tushar: UNKNOWN DATE Seasonal Allergies Seasonal Allergies: No Past Medical History Surgeries: Yes (RIGHT UPPER ARM A-V DIALYSIS SHUNT/GRAFT;CARDIAC CATH-STENT X 1) Cardiac, Coronary Stent, Dialysis, Vascular Surgery Respiratory: No Cardiac: Yes (stent x1 2010) Coronary Artery Disease, Hypertension Neurological: No Genitourinary: Yes (ESRD ON DIALYSIS -W-) Renal Failure, Dialysis Gastrointestinal: Yes Gastroesophageal Reflux Musculoskeletal: No Endocrine: Yes Parathyroid Disease, Diabetes, Insulin dep, Hypothyroidsim HEENT: No Cancer: No Psychosocial: Yes Anxiety, Depression Integumentary: No Blood Disorders: Yes (anemia) Physical Exam Vital Signs Vital Signs - First Documented 05/12/22 05/12/22 11:46 13:03 Temp 36.4 Pulse 96 Resp 16 B/P (MAP) 95/50 (65) Pulse Ox 97 O2 Delivery Room Air Capillary Refill : Less Than 3 Seconds Height, Weight, BMI Height: '" Weight: lbs. oz. kg; 31.00 BMI Method: General Appearance: No Apparent Distress, WD/WN Respiratory: Normal Breath Sounds Cardiovascular: Regular Rate, Rhythm Extremity: Normal Range of Motion, Other (LEFT UPPER ARM WITH DRESSING IN PLACE. OUTER LAYERS ARE CLEAN AND DRY. SHIRT HAS A MODERATE AMOUNT OF DRIED BLOOD ON IT. NO DISTAL SWELLING. DISTAL MOTOR/SENSORY/VASCULAR INTACT--FINGERS ARE PINK AND WARM WITH GOOD CAPILLARY REFILL. ) Neurologic/Psychiatric: Alert, Oriented x3 (BUT VERY POOR MEMORY), No Motor/Sensory Deficits (GROSSLY INTACT) Skin: Normal Color, Warm/Dry Progress/Results/Core Measures Suspected Sepsis SIRS Temperature: Pulse: 96 Respiratory Rate: 16 Laboratory Tests 05/12/22 12:05: White Blood Count 8.2 Blood Pressure 95 /50 Mean: 65 Laboratory Tests 05/12/22 12:05: INR Comment 0.9, Platelet Count 231 Results/Orders Lab Results Laboratory Tests Test 05/12/22 12:05 Range/Units White Blood Count 8.2 4.3-11.0 10^3/uL Red Blood Count 5.62 H 4.30-5.52 10^6/uL Hemoglobin 19.0 H 13.3-17.7 g/dL Hematocrit 57 H 40-54 % Mean Corpuscular Volume 102 H 80-99 fL Mean Corpuscular Hemoglobin 34 25-34 pg Mean Corpuscular Hemoglobin Concent 33 32-36 g/dL Red Cell Distribution Width 14.4 10.0-14.5 % Platelet Count 231 130-400 10^3/uL Mean Platelet Volume 9.9 9.0-12.2 fL Immature Granulocyte % (Auto) 1 % Neutrophils (%) (Auto) 71 42-75 % Lymphocytes (%) (Auto) 11 L 12-44 % Monocytes (%) (Auto) 15 H 0-12 % Eosinophils (%) (Auto) 1 0-10 % Basophils (%) (Auto) 1 0-10 % Neutrophils # (Auto) 5.9 1.8-7.8 10^3/uL Lymphocytes # (Auto) 0.9 L 1.0-4.0 10^3/uL Monocytes # (Auto) 1.3 H 0.0-1.0 10^3/uL Eosinophils # (Auto) 0.1 0.0-0.3 10^3/uL Basophils # (Auto) 0.1 0.0-0.1 10^3/uL Immature Granulocyte # (Auto) 0.1 0.0-0.1 10^3/uL Prothrombin Time 13.0 12.2-14.7 SEC INR Comment 0.9 0.8-1.4 Activated Partial Thromboplast Time 34 24-35 SEC My Orders Orders - ANTHONY BROWN DO Cbc With Automated Diff (05/12/22 11:57) Protime With Inr (05/12/22 11:57) Partial Thromboplastin Time (05/12/22 11:57) Vital Signs/I&O 05/12/22 05/12/22 11:46 13:03 Temp 36.4 36.8 Pulse 96 69 Resp 16 17 B/P (MAP) 95/50 (65) 109/64 Pulse Ox 97 O2 Delivery Room Air Room Air Capillary Refill : Less Than 3 Seconds Blood Pressure Mean: 65 Progress Note : Progress Note DRESSING WAS REMOVED ON ARRIVAL. THERE IS NO BLEEDING OR HEMATOMA /EXCESSIVE BRUISING OR SWELLING AT THE SITE AT THIS TIME NO TENDERNESS AT THE SITE DISTAL CAP REFILL IS LESS THAN 3 SECONDS. AREA RE-DRESSED WITH 4X4'S AND CLING GAUZE. NO BLEEDING THROUGH DRESSING DURING ER STAY--PT WAS OBSERVED FOR OVER AN HOUR IN ER. HGB IS 19 Departure Impression Primary Impression: Bleeding from dialysis shunt Disposition: XF SNF Condition: Stable Departure-Patient Inst. Decision time for Depature: 12:51 Referrals: HELADIO FALL MD (PCP/Family) Primary Care Physician Patient Instructions: Arteriovenous Fistula for Dialysis (DC) Add. Discharge Instructions: CONTINUE ALL YOUR REGULAR ORDERS LEAVE DRESSING IN PLACE FOR 24 HOURS RETURN TO ER IF AREA BEGINS TO BLEED AGAIN. All discharge instructions reviewed with patient and/or family. Voiced understanding. ANTHONY BROWN DO May 12, 2022 12:47
[2022-05-12 13:03] VITALS: BP 109/64
== END 2022-05-12 13:03 ==
LOC: EDUNIT# 11:46 → ER 11:48
DX: T82.838A Hemorrhage due to vascular prosthetic devices, implants and grafts, initial encounter (principal); E11.22 Type 2 diabetes mellitus with diabetic chronic kidney disease; I12.0 Hypertensive chronic kidney disease with stage 5 chronic kidney disease or end stage renal disease; N18.6 End stage renal disease; F17.210 Nicotine dependence, cigarettes, uncomplicated; Z99.2 Dependence on renal dialysis; Z79.4 Long term (current) use of insulin
CPT/HCPCS: 36415; 85025; 85610; 85730

== ENCOUNTER 2022-09-07 11:21 | Emergency (ER) | payer MEDICARE, MEDICAID ==
[~2022-09-07] VITALS: Ht 167 cm; Wt 74.0 kg
--- NOTE | 2022-09-07 11:27 | ED General ---
General Stated Complaint: LOW BLOOD SUGAR | UNRESPONSIVE Source of Information: Patient, EMS Exam Limitations: No Limitations History of Present Illness Date Seen by Provider: Sep 07, 2022 Time Seen by Provider: 11:26 Initial Comments Patient is a 67-year-old male history of insulin-dependent diabetes, states he was standing in his room at [facility] this morning watching TV when he fell to the ground. Upon staff evaluation he was noted to have a blood sugar of 21. EMS responded, the patient was given both oral and IM glucagon as well as oral glucose. He denies injury from his fall. He denies any recent illnesses such as fevers, productive cough, sore throat. No flulike symptoms. No pain in his chest abdomen, pelvis or extremities. He states this happens occasionally. He did eat breakfast this morning. He had gradual improvement of his blood s ugar from 21-39 to 55 . He is eating some aura crackers and drinking a Sprite on my entry into the room. Alert and oriented. All other review of systems reviewed and negative except as stated. Timing/Duration: 1 Hour Severity: Severe Associated Systoms: Denies Symptoms Allergies and Home Medications Allergies Coded Allergies: No Known Drug Allergies (Unverified , 12/01/21) Patient Home Medication List Home Medication List Reviewed: Yes Aspirin (Aspirin) 81 Mg Tab.chew, 81 MG PO DAILY, (Reported) Entered as Reported by: MASOOD PARRY on 12/23/211644 Bupropion HCl (Bupropion HCl) 100 Mg Tablet, 100 MG PO DAILY@1700, (Reported) Entered as Reported by: MASOOD PARRY on 12/23/211644 Bupropion HCl (Bupropion HCl ER) 200 Mg Tablet.er, 200 MG PO DAILY, (Reported) Entered as Reported by: MASOOD PARRY on 12/23/211644 Carvedilol (Carvedilol) 3.125 Mg Tablet, 3.125 MG PO BID, (Reported) Entered as Reported by: MASOOD PARRY on 12/23/211644 Clopidogrel Bisulfate (Clopidogrel) 75 Mg Tablet, 75 MG PO DAILY, (Reported) Entered as Reported by: MASOOD PARRY on 12/23/211644 Docusate Sodium (Docusate Sodium) 100 Mg Capsule, 100 MG PO DAILY, (Reported) Entered as Reported by: MASOOD PARRY on 12/23/211644 Folic Acid/Vitamin B Comp W-C (Nephro-Dread Tablet) 0.8 Mg Tablet, 0.8 MG PO DAILY, (Reported) Entered as Reported by: MASOOD PARRY on 12/23/211644 Hydrocodone/Acetaminophen (Hydrocodone-Acetamin 5-325 mg) 1 Each Tablet, 1 TAB PO Q4H PRN for PAIN-MODERATE (5-7), (Reported) Entered as Reported by: MASOOD PARRY on 12/23/211644 Insulin Aspart (Novolog) 100 Unit/1 Ml Susp, 8-15 UNITS SQ BIDAC, (Reported) Entered as Reported by: MASOOD PARRY on 12/23/211644 Levothyroxine Sodium (Levothyroxine Sodium) 25 Mcg Tablet, 25 MCG PO DAILY, (Reported) Entered as Reported by: MASOOD PARRY on 12/23/211644 Multivit-Min/FA/Lycopen/Lutein (Men 50 Plus Multivitamin Tab) 1 Each Tablet, 1 EACH PO DAILY, (Reported) Entered as Reported by: MASOOD PARRY on 12/23/211644 Pantoprazole Sodium (Pantoprazole Sodium) 40 Mg Tablet.dr, 40 MG PO DAILY, (Reported) Entered as Reported by: MASOOD PARRY on 12/23/211644 Sertraline HCl (Sertraline HCl) 50 Mg Tablet, 50 MG PO DAILY, (Reported) Entered as Reported by: MASOOD PARRY on 12/23/211644 Sevelamer Carbonate (Sevelamer Carbonate) 800 Mg Tablet, 3 TAB PO TID, (Reported) Entered as Reported by: MASOOD PARRY on 12/23/211644 Sodium Zirconium Cyclosilicate (Lokelma) 10 Gm Powd.pack, 10 GM PO DAILY, (Reported) Entered as Reported by: MASOOD PARRY on 12/23/211644 Review of Systems Review of Systems Constitutional: see HPI EENTM: no symptoms reported Respiratory: no symptoms reported Cardiovascular: no symptoms reported Gastrointestinal: no symptoms reported Genitourinary: no symptoms reported Musculoskeletal: no symptoms reported Skin: no symptoms reported All Other Systems Reviewed Negative Unless Noted: Yes Past Lyzsrav-Aodecf-Llzjzp Hx Immunizations Up To Date First/Initial COVID19 Vaccinat: UNKNOWN DATE Second COVID19 Vaccination Tushar: UNKNOWN DATE Seasonal Allergies Seasonal Allergies: No Past Medical History Surgeries: Yes (RIGHT UPPER ARM A-V DIALYSIS SHUNT/GRAFT;CARDIAC CATH-STENT X 1) Cardiac, Coronary Stent, Dialysis, Vascular Surgery Respiratory: No Cardiac: Yes (stent x1 2010) Coronary Artery Disease, Hypertension Neurological: No Genitourinary: Yes (ESRD ON DIALYSIS -W-) Renal Failure, Dialysis Gastrointestinal: Yes Gastroesophageal Reflux Musculoskeletal: No Endocrine: Yes Parathyroid Disease, Diabetes, Insulin dep, Hypothyroidsim HEENT: No Cancer: No Psychosocial: Yes Anxiety, Depression Integumentary: No Blood Disorders: Yes (anemia) Physical Exam Vital Signs Vital Signs - First Documented 09/07/22 11:21 Temp 35.7 Pulse 70 Resp 16 B/P (MAP) 131/99 (110) Pulse Ox 99 O2 Delivery Room Air Capillary Refill : Height, Weight, BMI Height: '" Weight: lbs. oz. kg; 31.00 BMI Method: General Appearance: No Apparent Distress, WD/WN Eyes: Bilateral Eye Normal Inspection, Bilateral Eye PERRL, Bilateral Eye EOMI Neck: Normal Inspection Respiratory: Lungs Clear, Normal Breath Sounds, No Accessory Muscle Use, No Respiratory Distress Cardiovascular: Regular Rate, Rhythm, Normal Peripheral Pulses Gastrointestinal: Non Tender, Soft Extremity: Normal Inspection, Normal Range of Motion Neurologic/Psychiatric: Alert, Oriented x3, No Motor/Sensory Deficits, Normal Mood/Affect, furniture cleaner II-XII Norm as Tested Skin: Normal Color, Warm/Dry Progress/Results/Core Measures Suspected Sepsis SIRS Temperature: Pulse: Respiratory Rate: Laboratory Tests 09/07/22 11:20: White Blood Count 8.2 Blood Pressure / Mean: Laboratory Tests 09/07/22 11:20: Platelet Count 211 09/07/22 13:34: Results/Orders Lab Results Laboratory Tests Test 09/07/22 11:20 09/07/22 12:13 09/07/22 13:34 Range/Units White Blood Count 8.2 4.3-11.0 10^3/uL Red Blood Count 5.71 H 4.30-5.52 10^6/uL Hemoglobin 19.4 H 13.3-17.7 g/dL Hematocrit 59 H 40-54 % Mean Corpuscular Volume 104 H 80-99 fL Mean Corpuscular Hemoglobin 34 25-34 pg Mean Corpuscular Hemoglobin Concent 33 32-36 g/dL Red Cell Distribution Width 13.9 10.0-14.5 % Platelet Count 211 130-400 10^3/uL Mean Platelet Volume 9.9 9.0-12.2 fL Immature Granulocyte % (Auto) 0 % Neutrophils (%) (Auto) 62 42-75 % Lymphocytes (%) (Auto) 13 12-44 % Monocytes (%) (Auto) 22 H 0-12 % Eosinophils (%) (Auto) 2 0-10 % Basophils (%) (Auto) 1 0-10 % Neutrophils # (Auto) 5.1 1.8-7.8 10^3/uL Lymphocytes # (Auto) 1.1 1.0-4.0 10^3/uL Monocytes # (Auto) 1.8 H 0.0-1.0 10^3/uL Eosinophils # (Auto) 0.1 0.0-0.3 10^3/uL Basophils # (Auto) 0.1 0.0-0.1 10^3/uL Immature Granulocyte # (Auto) 0.0 0.0-0.1 10^3/uL Neutrophils % (Manual) 63 % Lymphocytes % (Manual) 15 % Monocytes % (Manual) 18 % Eosinophils % (Manual) 0 % Basophils % (Manual) 1 % Band Neutrophils 3 % Blood Morphology Comment NORMAL Glucometer 98 70-110 MG/DL My Orders Orders - OLAF BOTELLO MD Ed Iv/Invasive Line Start (09/07/22 11:26) Cbc With Automated Diff (09/07/22 11:26) Basic Metabolic Panel (09/07/22 11:26) General/Regular (09/07/22 Lunch) Manual Differential (09/07/22 11:20) Vital Signs/I&O 09/07/22 11:21 Temp 35.7 Pulse 70 Resp 16 B/P (MAP) 131/99 (110) Pulse Ox 99 O2 Delivery Room Air Capillary Refill : Progress Note : Time: 13:55 Progress Note Notified by the nurse that the patient's blood sugar is now up to 171. He was a difficult blood stick so labs were somewhat delayed. He continues to be without symptoms. Blood sugar is back up into an acceptable range, do not anticipate that the patient will need to be admitted. He is not on any oral hypoglycemics. Once we establish that his serum chemistry is at baseline/normal we will be able to send him back home to [facility]. Departure Impression Primary Impression: Hypoglycemia associated with diabetes Disposition: HOME, SELF-CARE Condition: Improved Departure-Patient Inst. Referrals: HELADIO FALL MD (PCP/Family) Primary Care Physician Patient Instructions: Low Blood Sugar in People With Diabetes Add. Discharge Instructions: You should have your blood sugar checked every 2 or 3 hours the rest of the day while you are at home. Resume your normal dosing of insulin tonight. If you have any other new, concerning or emergent complaints, please come back to the Emergency Department for re-evaluation. Copy Copies To 1: HELADIO FALL MD, KATHRYN M MD Sep 07, 2022 11:27
[2022-09-07 11:36] LABS: BASOPHILS # (AUTO) 0.1 10^3/uL (0.0-0.1); BASOPHILS % (AUTO) 1 % (0-10); EOSINOPHILS # (AUTO) 0.1 10^3/uL (0.0-0.3); EOSINOPHILS % (AUTO) 2 % (0-10); HEMATOCRIT 59 % (40-54); HEMOGLOBIN 19.4 g/dL (13.3-17.7); LYMPHOCYTES # (AUTO) 1.1 10^3/uL (1.0-4.0); LYMPHOCYTES % (AUTO) 13 % (12-44); MEAN CORPUSCULAR HEMOGLOBIN 34 pg (25-34); MEAN CORPUSCULAR HGB CONC 33 g/dL (32-36); MEAN CORPUSCULAR VOLUME 104 fL (80-99); MEAN PLATELET VOLUME 9.9 fL (9.0-12.2); MONOCYTES # (AUTO) 1.8 10^3/uL (0.0-1.0); MONOCYTES % (AUTO) 22 % (0-12); NEUTROPHILS # (AUTO) 5.1 10^3/uL (1.8-7.8); NEUTROPHILS % (AUTO) 62 % (42-75); PLATELET COUNT 211 10^3/uL (130-400); WHITE BLOOD COUNT 8.2 10^3/uL (4.3-11.0)
[2022-09-07 12:04] LABS: BAND NEUTROPHILS 3 %; BASOPHILS % (MANUAL) 1 %; EOSINOPHILS % (MANUAL) 0 %; LYMPHOCYTES % (MANUAL) 15 %; MONOCYTES % (MANUAL) 18 %; NEUTROPHILS % (MANUAL) 63 %; RBC MORPH NORMAL
[2022-09-07 13:54] LABS: POTASSIUM 5.4 MMOL/L (3.6-5.0)
[2022-09-07 14:05] LABS: CALCIUM 9.7 MG/DL (8.5-10.1); CREATININE SERUM 7.53 MG/DL (0.60-1.30)
[2022-09-07 15:05] VITALS: BP 113/64
== END 2022-09-07 15:04 | disposition home or self-care (01) ==
LOC: EDUNIT# 11:21 → ER 11:22
DX: E11.649 Type 2 diabetes mellitus with hypoglycemia without coma (principal); E11.22 Type 2 diabetes mellitus with diabetic chronic kidney disease; I12.0 Hypertensive chronic kidney disease with stage 5 chronic kidney disease or end stage renal disease; N18.6 End stage renal disease; Z79.4 Long term (current) use of insulin; Z99.2 Dependence on renal dialysis
CPT/HCPCS: 36415; 80048; 82947; 85007; 85027

== ENCOUNTER → 2023-05-04 | Outpatient (CLI) | payer MEDICARE, MEDICAID ==
--- NOTE | 2023-05-04 14:34 | Diagnostic Imaging Report ---
PROCEDURE: US Renal Bilateral. TECHNIQUE: Multiple real-time grayscale images were obtained over the kidneys in various projections bilaterally. INDICATION: Renal cysts. Correlation is made to prior ultrasound from 02/21/2022. Right kidney measures 10.2 x 4.6 x 3.6 cm and the left kidney measures 7.6 x 4.0 x 4.9 cm. Right lower pole renal cyst measures 3.2 x 3.6 x 2.9 cm. This compares with 3.4 x 3.6 x 2.9 cm. Left renal cyst upper pole measures 3.0 x 2.6 x 2.9 cm. This compares with 3.2 x 2.3 x 2.2 cm on prior. There is cortical thinning bilaterally. No calculi are seen. There is no hydronephrosis. Prostate is enlarged measuring 4.1 x 3.0 x 4.5 cm and appears to indent the bladder base. Ureteral jets were not visualized. IMPRESSION: Bilateral renal cysts. Left renal cyst measures slightly larger when compared to examination from 02/21/2022. No calculi or hydronephrosis is detected. Dictated by: Dictated on workstation # [id number]
== END ==
LOC: RAD 11:49
PROVIDERS: ATTEND Internal Medicine
DX: N28.1 Cyst of kidney, acquired (principal)
CPT/HCPCS: 76770

== ENCOUNTER 2023-05-09 13:30 | Outpatient (RCR) | payer MEDICARE, MEDICAID ==
[2023-05-02 14:37] LABS: BASOPHILS # (AUTO) 0.1 10^3/uL (0.0-0.1); BASOPHILS % (AUTO) 1 % (0-10); EOSINOPHILS # (AUTO) 0.1 10^3/uL (0.0-0.3); EOSINOPHILS % (AUTO) 1 % (0-10); HEMATOCRIT 58 % (40-54); HEMOGLOBIN 19.5 g/dL (13.3-17.7); LYMPHOCYTES # (AUTO) 0.9 10^3/uL (1.0-4.0); LYMPHOCYTES % (AUTO) 16 % (12-44); MEAN CORPUSCULAR HEMOGLOBIN 33 pg (25-34); MEAN CORPUSCULAR HGB CONC 33 g/dL (32-36); MEAN CORPUSCULAR VOLUME 100 fL (80-99); MEAN PLATELET VOLUME 9.9 fL (9.0-12.2); MONOCYTES # (AUTO) 1.1 10^3/uL (0.0-1.0); MONOCYTES % (AUTO) 19 % (0-12); NEUTROPHILS # (AUTO) 3.6 10^3/uL (1.8-7.8); NEUTROPHILS % (AUTO) 63 % (42-75); PLATELET COUNT 188 10^3/uL (130-400); WHITE BLOOD COUNT 5.8 10^3/uL (4.3-11.0)
[2023-05-02 15:11] LABS: ERYTHROCYTE SEDIMENTATION RATE 1 MM/HR (0-30)
[2023-05-09 14:36] LABS: RETICULOCYTE % 2.05 % (0.50-2.40)
== END 2023-05-24 | disposition home or self-care (01) ==
LOC: ONC 13:30
PROVIDERS: ATTEND Internal Medicine Hematology & Oncology
DX: D75.1 Secondary polycythemia (principal)
CPT/HCPCS: 81270; 82607; 82668; 82746; 83615; 85025; 85652; G0463; 82375; 85045; 99204; 99214